=== PATIENT | female | born 1955 | race Caucasian/White ===

== ENCOUNTER 2023-01-22 07:33 | Day surgery (SDC) | payer OTHER, MEDICARE ==
[2023-01-22] MEDS ORDERED: LIDOCAINE HCL/PF 2% SDV 5ML VIAL ONE (07:47)
[2023-01-22] MEDS ORDERED: PROPOFOL 80 ML ONE (07:47)
[2023-01-22 08:54] VITALS: RESP 19; TEMP 97.8
[2023-01-22 08:58] VITALS: BP 118/68; PULSE 65
== END 2023-01-22 09:25 | disposition home or self-care (01) ==
LOC: FASU-ENDO 07:33
PROVIDERS: ATTEND Internal Medicine Gastroenterology
PROC: 0DJD8ZZ Inspection of Lower Intestinal Tract, Via Natural or Artificial Opening Endoscopic (ICD-10-PCS; principal; 2023-01-22 08:21)
DX: Z12.11 Encounter for screening for malignant neoplasm of colon (principal)